=== PATIENT | female | born 2000 | race Two or more races ===

== ENCOUNTER 2022-10-02 00:12 | Emergency (ER) | payer BC, MEDICAID ==
[~2022-10-02] VITALS: Ht 160 cm; Wt 100.0 kg
[2022-10-02] MEDS ORDERED: CLINDAMYCIN HCL 150 MG CAP PO ONE (00:45)
[2022-10-02] MEDS ORDERED: ALBUTEROL SULF 2.5 MG/0.5ML(0.5%) NEB SOLN NEB ONE (00:45)
[2022-10-02] MEDS ORDERED: DexAMETHasone SOD PHOS 10MG/1ML VIAL INJ IM ONE (00:45)
[2022-10-02] MEDS ORDERED: IPRATROPIUM BROM 0.5 MG/2.5ML INH SOL NEB ONE (00:45)
[2022-10-02] MEDS ORDERED: CLIN300C70 PO (01:56)
[2022-10-02] MEDS ORDERED: ALBUAER3 IN (01:56)
[2022-10-02] MEDS ORDERED: BENZLOZ2 MT (01:56)
[2022-10-02] MEDS ORDERED: BENZ200C64 PO (01:56)
[2022-10-02] MEDS ORDERED: DOXY-346 PO (01:56)
[2022-10-02] MEDS ORDERED: PRED20TA2 PO (01:56)
[2022-10-02 03:36] VITALS: BP 141/88; PULSE 88; RESP 18; TEMP 98.2; O2SAT 98
== END 2022-10-02 03:36 | disposition home or self-care (01) ==
LOC: ER 00:12
DX: J03.90 Acute tonsillitis, unspecified (principal); J18.9 Pneumonia, unspecified organism
CPT/HCPCS: 71045; 94640; 99283; J7644